=== PATIENT | female | born 1970 | race Caucasian/White ===

== ENCOUNTER 2024-11-16 10:54 | Outpatient (AMB) | payer OTHER, SELFPAY ==
--- NOTE | 2024-11-16 11:08 | A.OFFVIS_ITS ---
Intake Visit Reasons: CTS Allergies tranexamic acid (From LYSTEDA) Adverse Reaction (Intermediate, Unverified 11/16/24 11:20) severe n/v From ERYTHROCIN Allergy (Unknown, Uncoded 11/16/24 11:20) unknown Erythromycin Adverse Reaction (Unknown, Uncoded 11/16/24 11:20) stomache ache Medication List - Last Reconciled 11/16/24 by Freda Burrell CNP atorvastatin 10 mg PO DAILY cyclobenzaprine 5 mg PO BEDTIME PRN dextroamphetamine-amphetamine 20 mg 1 tab PO dextroamphetamine-amphetamine 30 mg ER 1 cap PO QAM diclofenac sodium 75 mg PO BID fezolinetant (Veozah) 45 mg PO DAILY lamotrigine 150 mg PO BID levothyroxine 25 mcg PO DAILY metformin ER 500 mg PO DAILY montelukast 10 mg PO DAILY quetiapine mg PO tirzepatide (Mounjaro) 7.5 mg subcut QWEEK topiramate 100 mg PO DAILY HPI Comments Details: She was doing okay. Some days better than others, occasionally getting pain in R hand, sometimes once a week or not at all, with certain activities like picking object up. Occasionally wakes with some numbness/tingling to R hand depending on how she slept. Sleep was generally okay. Ongoing neck pain and stiffness, unchanged. Some tightness in shoulders. Has some pain to left upper arm for about 2 weeks with certain activity, like lifting. No specific trigger identified. Pain and numbness to RUE was initially better with cyclobenzaprine at bedtime. Was getting pain from elbow down into fingers and numbness in fingers with certain activities, like when picking up coffee mug. Previously was?waking with numbness to RUE and gets some numbness throughout day, no specific trigger. No new or increased weakness. Works from home. She sits on a desk with a monitor all day. Ergonomically correct. Some work related stress. Some stiffness in neck daily. Numbness in all fingers at times. RUE is not as strong. Since 2018, she's been having a lot of neck pain for which she has been going to physical therapy. She had an MRI of the neck which showed degenerative disc disease with right HNP at C4-5 and C5-6 disc osteophyte complexes and was having pain radiating into the right upper extremity along with numbness and tingling. She had a cortisone injection in the neck which helped the right upper extremity pain. She has upper neck pain and occipital headache radiating into of the retroauricular areas of the scalp. Her funduscopic examination and visual bravo were fine. She had pseudotumor cerebri with multiple lumbar punctures about 15-20+ years ago (around [id number]) with her last lumbar puncture in 2003. [facility] Medical History (Updated 11/16/24 @ 11:17 by Freda uBrrell CNP) Carpal tunnel syndrome of right wrist Pseudotumor cerebri ADHD Diabetes mellitus Tension headache Cervical spondylosis Review of Systems Const Denies chills, Denies daytime sleepiness, Reports difficulty sleeping, Denies fatigue, Denies fever(s), Denies frequent falls, Denies headache(s), Denies increased appetite, Denies poor appetite, Denies snoring, Denies weakness, Denies weight gain and Denies weight loss Eyes Denies loss of vision ENT Denies vertigo, Denies dizziness, Denies headache(s) and Denies neck pain Card Denies chest pain at rest, Denies chest pain with activity, Denies syncope, Denies leg edema, Denies palpitations, Denies dyspnea and Denies dyspnea on exertion Resp Denies cough, Denies dyspnea, Denies dyspnea on exertion and Denies snoring GI Denies abdominal pain, Denies constipation, Denies heartburn, Denies diarrhea and Denies nausea Denies urinary frequency, Denies urinary incontinence and Denies urinary urgency Musc Denies abnormal gait, Denies back pain, Denies myalgias, Denies arthralgias, Denies neck pain, Reports numbness and Reports tingling Neuro Denies abnormal gait, Denies vertigo, Denies dizziness, Denies syncope, Denies frequent falls, Denies headache(s), Denies lack of coordination, Denies loss of vision, Denies memory loss, Reports numbness, Denies Other visual disturbances, Denies restless legs, Denies seizure-like activity, Reports tingling, Denies paresthesias, Denies tremor(s) and Denies weakness Psych Denies anxiety, Denies depression, Denies auditory hallucinations, Denies memory loss and Denies visual hallucinations Endo Denies fatigue and Denies palpitations Physical Exam Const Other: General Appearance:? normal, in no acute distress. Heart:? S1, S2 normal, no murmurs. Lungs:? clear anteriorly and posteriorly. Musculoskeletal:? normal. Extremities:? no edema. Psych:? alert, oriented, cognitive function intact, cooperative with exam. Neuro Other: Abnormal Neurological Findings:?Weakness in right biceps, deltoid and infraspinatus have resolved. Tense paracervical muscles. 5-/5 L deltoid. Mental Status: alert and oriented X 3. Normal attention, orientation, memory, and affect. Cranial Nerves: Pupils are equal, round, and reactive to light. External ocular muscles are intact. Visual bravo are full, no ptosis. Face is symmetrical, no facial weakness or droop. Facial sensations are normal. Tongue protrudes in midline. Palate elevates symmetrically. Shoulder shrugging is normal Motor Examination: As above, otherwise normal muscle tone, bulk and strength. No atrophy or fasciculations. No drift of the extended upper extremities. DTR 2+. Plantars are flexor. Sensory Exam: Normal light touch, temperature, pinprick, vibration, and joint- position sensations. Rhomberg sign is absent. Coordination: No ataxia. No titubation. Wtlaqq-ju-suec, gudc-hjox-bete test, and rapid alternating movements were normal. Gait Exam: Within normal limits. Cerebellar Signs: Mkoeph-oi-ihcq and qbcw-kf-lhhh is normal. No dysdiadochokinesia. Extrapyramidal System: No tremor, rigidity with normal facial expressions. No bradykinesia. No bradyphrenia. Normal arm swing and posture. No propulsion or retropulsion. Speech: Normal. No dysphasia or dysarthria. Results Reviewed Results Reviewed: NCV/EMG UE 03/11/20: Normal motor and sensory nerve conduction velocities in the upper extremities, except for an early Carpal tunnel syndrome on the right. Normal EMG in the right C5-T1 innervated muscles. MRI of the neck which showed degenerative disc disease with right HNP at C4-5 and C5-[address] brain and C spine 07/19/21: negative except C5-6 disc and osteophyte NCV/EMG UE 08/08/2024: Mild R CTS, slightly worse compared to study done in 2020. Normal EMG in the R C5-T1 innervated muscles. Labs 11/16/2024 at [place] (from PCP/endo): BUN: 21, Creat: 1.04, eGFR 64, LFTs ok, TSH ok, B12 ok, CBC - RBC 3.98, H+H 12.2/36.9 Assessment & Plan Assessment & Plan (1) Cervical radiculopathy at C5: Code(s): M54.12 - Radiculopathy, cervical region Category: Medical Plan: Continue diclofenac sodium 75mg 1 tablet as needed twice a day for pain. Continue cyclobenzaprine 5mg 1 tablet at bedtime as needed for muscle spasm. (2) Carpal tunnel syndrome of right wrist: Code(s): G56.01 - Carpal tunnel syndrome, right upper limb Category: Medical Plan: NCV/EMG results reviewed. May try wearing wrist splint at night. (3) Tension headache: Code(s): G44.209 - Tension-type headache, unspecified, not intractable Category: Medical Plan: . (4) Pseudotumor cerebri: Comment: hx of pseudotumor cerebri with multiple lumbar punctures about 15-20+ years ago (around [id number]) with her last lumbar puncture in 2003. Code(s): G93.2 - Benign intracranial hypertension Category: Medical Plan: Hx pseudotumor cerebri with multiple lumbar punctures about 15-20+ years ago (around [id number]) with her last lumbar puncture in 2003. (5) ADHD: Code(s): F90.9 - Attention-deficit hyperactivity disorder, unspecified type Category: Medical Qualifiers: Attention deficit-hyperactivity disorder type: unspecified Qualified Code(s): F90.9 - Attention-deficit hyperactivity disorder, unspecified type Plan: Treated with Adderall by psychiatry. Coding Level of Care Code Est Pt Level 4 (00359) Diagnoses Cervical radiculopathy at C5 M54.12 Carpal tunnel syndrome of right wrist G56.01 Tension headache G44.209 Pseudotumor cerebri G93.2 Attention deficit hyperactivity disorder (ADHD), unspecified ADHD type F90.9 Attention deficit-hyperactivity disorder type: unspecified
--- OUTSIDE RECORDS SUMMARY | 2024-11-16 11:34 | XMS_ITS | Clinical Summary ---
Author Organization [facility] Address [address] [place] [address] Care Team Providers Care Mechanical Lead Name Role Phone Bharati Fang PA-C Primary Care Provider [phone] Allergies No known active allergies Medications Adderall XR 20 MG 24 hr capsule 0 Active amphetamine-dextr oamphetamine (ADDERALL) 20 MG tablet TK 1 T PO QD IN THE AFTERNOON 0 Active atorvastatin (LIPITOR) 10 MG tablet 0 Active cyclobenzaprine (FLEXERIL) 10 MG tablet 0 Active BD Pen Needle Diane U/F 32G X 4 MM Misc USE DIRECTED BID 0 Active lamoTRIgine (LaMICtal) 150 MG tablet 0 Active Accu-Chek Softclix Lancets lancets Accu-Chek Softclix Lancets Active Victoza 18 MG/3ML subcutaneous injection ADM 1.8 MG SC D 0 Active metFORMIN (GLUCOPHAGE-XR) 500 MG 24 hr tablet TK 1 T PO QD WITH DINNER 0 Active topiramate (TOPAMAX) 25 MG tablet TK 2 TS PO QD 0 Active cetirizine (ZyrTEC) 10 MG tablet Take 10 mg by mouth daily. Active naproxen (NAPROSYN) 500 MG tabletIndications :Cervicalgia Take 1 tablet (500 mg total) by mouth 2 (two) times a day with meals. Take with meals or food to reduce stomach upset. 60 tablet 1 0 Active polyethylene glycol-electrolyt es (NuLYTELY, TRILYTE) 420 g solutionIndicatio ns:Chronic idiopathic constipation Take 4,000 mL by mouth once. 4000 mL 0 Active Active Problems Problem Noted Date Diagnosed Date Rectal bleeding 01/04/2020 Assessment & Plan (01/04/2020 2:03 PM EST): Blood mixed with mucus x 24 hours after large, constipated BM. Now resolved. Consider hemorrhoid, fissure, underlying bowel pathology such as polyp or malignancy. Colonoscopy A colonoscopy will be scheduled based on current indication. The indications, prep, alternatives and the procedure were thoroughly explained. There is no contraindication to colonoscopy. All questions were answered. The potential risks including but not limited to bleeding, infection, and perforation were also explained. Chronic idiopathic constipation 01/04/2020 Assessment & Plan (01/04/2020 2:04 PM EST): Lifelong. Not well managed despite fiber supplementation daily. Add Miralax 17 g daily. Colonoscopy to exclude underlying pathology. Heartburn 01/04/2020 Assessment & Plan (01/04/2020 2:05 PM EST): Well managed with famotidine 20 mg QHS Discussed EGD for further evaluation, currently no alarm symptoms Patient declines at this time GERD diet discussed Consider EGD if symptoms worsen or fail to improve Myofascial pain dysfunction syndrome 10/22/2019 Social History Tobacco Use Types Packs/Day Years Used Date Smoking Tobacco: Never Smokeless Tobacco: Never Comments No Sex and Gender Information Value Date Recorded Sex Assigned at Female 12/29/2023 10:50 PM EDT Legal Sex Female 1:57 PM EDT Gender Identity Female 12/29/2023 10:50 PM EDT Sexual Orientation Heterosexual (straight) 12/28 10:50 PM EDT Last Filed Vital Signs Vital Sign Reading Time Taken Comments Blood Pressure 130/74 01/04/2020 1:36 PM EST Pulse 71 10/02/2019 4:19 PM EDT Temperature 36.1 C (96.9 F) 01/04/2020 1:36 PM EST Respiratory Rate 18 10/02/2019 4:19 PM EDT Oxygen Saturation 98% 10/02/2019 4:19 PM EDT Inhaled Oxygen Concentration - - Weight 106 kg (233 lb) 01/04/2020 1:36 PM EST Height 161.3 cm (5' 3.5 ) 01/04/2020 1:36 PM EST Body Mass Index 40.63 01/04/2020 1:36 PM EST Plan of Treatment Health Maintenance Due Date Last Done Comments Hepatitis C Virus Screening 1971 HIV Screening 08/28/1984 DTaP/Tdap/Td Vaccines (1 - Tdap) 08/28/1990 Hepatitis B Vaccines (1 of 3 - 19+ 3-dose series) 08/28/1990 Pap Smear (Ages 21-65) 08/28/1992 Mammogram 2011 Pneumococcal Vaccines 50+ (1 of 1 - PCV) 08/28/2021 Zoster (Shingles) Vaccine (1 of 2) 08/28/2021 Influenza Vaccine 09/28/2024 12/09/2020, , 11/29/2019, Additional history exists COVID-19 Vaccine (3 - 2024-2 6 season) 2024 12/21/2020, 05/19/2020 Colonoscopy 02/04/2030 02/05/2020 Hemoglobin A1C Discontinued 06/03/2023, 12/25/2019 Procedures Procedure Name Priority Date/Time Associated Diagnosis Comments COLONOSCOPY (CC) Routine 02/05/2020 from Last 3 Months or Most Recently Relevant to Health Maintenance Results * COLONOSCOPY (CC) (02/05/2020) Mila Norton DO AMB ORDERABLE PERFORMABLE Fin al Result from Last 3 Months or Most Recently Relevant to Health Maintenance Insurance [facility] Care Teams Mechanical Lead Relationship Specialty Start Date End Date Bharati Fang PA-C [address] [place] [address] PCP - General Internal Medicine 10/02/19
--- OUTSIDE RECORDS SUMMARY | 2024-11-16 11:35 | XMS_ITS | Clinical Summary ---
Author Organization [facility] Address [address] [place] [address] Phone Care Team Providers Care Patient Care Nursing Assistant Name Role Phone Bharati Fang Primary Care Provider [phone] Allergies No known active allergies Medications atorvastatin (LIPITOR) 10 mg tablet Take 1 tablet (10 mg total) by mouth 1 (one) time each day. 08/30/2024 Active cetirizine (ZyrTEC) 10 mg tablet Take 1 tablet (10 mg total) by mouth 1 (one) time each day. Active cyclobenzaprine (FLEXERIL) 5 mg tablet Take 1 tablet (5 mg total) by mouth at bedtime as needed. Active amphetamine-dex troamphetamine XR (ADDERALL XR) 30 mg 24 hr capsule Take 1 capsule (30 mg total) by mouth 1 (one) time each day in the morning. Max Daily Amount: 30 mg Active amphetamine-dex troamphetamine (ADDERALL) 20 mg tablet Take 1 tablet (20 mg total) by mouth 1 (one) time each day if needed. Max Daily Amount: 20 mg 09/21/2019 Active famotidine (PEPCID) 20 mg tablet Take 1 tablet (20 mg total) by mouth 1 (one) time each day. 02/29/2020 Active Veozah 45 mg tablet Take 1 tablet by mouth 1 (one) time each day. 01/16/2024 Active lamoTRIgine (LaMICtal) 150 mg tablet Take 1 tablet (150 mg total) by mouth 2 (two) times a day. 01/23/2019 Active levothyroxine (SYNTHROID, LEVOTHROID) 25 mcg tablet Take 1 tablet (25 mcg total) by mouth 1 (one) time each day before breakfast. 03/16/2022 Active metFORMIN XR (GLUCOPHAGE-XR) 500 mg 24 hr tablet Take 1 tablet (500 mg total) by mouth 1 (one) time each day. 09/02/2019 Active montelukast (SINGULAIR) 10 mg tablet Take 1 tablet (10 mg total) by mouth at bedtime. 08/25/2024 Active QUEtiapine (SEROquel) 25 mg tablet Take 2 tablets (50 mg total) by mouth at bedtime. Active topiramate (TOPAMAX) 100 mg tablet Take 1 tablet (100 mg total) by mouth 1 (one) time each day. 03/13/2022 Active Mounjaro 7.5 mg/0.5 mL injection Inject 0.5 mL (7.5 mg total) under the skin every 7 (seven) days. Active diclofenac (VOLTAREN) 75 mg EC tablet Take 1 tablet (75 mg total) by mouth 2 (two) times a day. 02/18/2020 Active Active Problems No known active problems Encounters Date Type Department Care Team Description 09/24/2024 8:01 PM EDT - 09/24/2024 9:37 PM EDT Emergency [facility] Emergency [address] [place] [id number] Alcides Brar MD Acute cystitis with hematuria (Primary Dx); JAELYN (acute kidney injury) ([facility] V24) Discharge Disposition: Home or Self Care from Last 3 Months Immunizations Name Administration Dates Next Due [employer] SARS-CoV-2 COVID -19, vector-nr, [id number], preservative free 05/19/2020 Surgical History Surgery Date Site/Laterality Comments SECTION PROCEDURE: SECTION;COMMENT:x2 KNEE ARTHROSCOPY W/ MENISCAL REPAIR Left PROCEDURE:KNEE ARTHROSCOPY W/ MENISCAL REPAIR BREAST BIOPSY 09/21/2017 Left PROCEDURE:BREAST BIOPSY;COMMENT:BENIGN HYSTERECTOMY 2011 PROCEDURE:HYSTERECTOMY;COMME NT:due to excessive bleeding; benign and ovaries left ENDOMETRIAL ABLATION PROCEDURE:ENDOMETRIAL ABLATION COLONOSCOPY 02/05/2020 PROCEDURE:COLONOSCOPY;COMMEN T:benign polyp and int hemorrhoids; rec rpt in 5yrs with Dr. 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 Left breast mass 11/16/2017 DX:Left breast mass Bipolar 2 disorder ([facility] V24, [facility] V28) DX:Bipolar 2 disorder ([facility]) Family History Medical History Relation Name Comments Diabetes type II Father Diabetes Maternal Grandfather Heart disease Maternal Grandfather Prostate cancer Maternal Grandfather Brain cancer Maternal Grandmother at end of life Bipolar disorder Mother Rheum arthritis Mother Breast cancer Mother's Sister No Known Problems Paternal Grandfather No Known Problems Paternal Grandmother Bipolar disorder Sister ADD / ADHD Son 1 ADD / ADHD Son 2 Colon cancer Neg Hx Endometrial cancer Neg Hx Ovarian cancer Neg Hx Relation Name Status Comments Father Alive Maternal Grandfather Maternal Grandmother Mother Alive Mother's Sister Paternal Grandfather Paternal Grandmother Sister Alive Son 1 Alive Son 2 Alive Social History Tobacco Use Types Packs/Day Years Used Date Smoking Tobacco: Never Passive Smoke Exposure: Never Smokeless Tobacco: Never Tobacco Cessation:Counseling Given: Not Answered Alcohol Use Standard Drinks/Week Comments Yes 0 (1 standard drink = 0.6 oz pur e alcohol) social Comments Unknown Sex and Gender Information Value Date Recorded Sex Assigned at Female 01/18/2024 12:10 AM EST Legal Sex Female 4:08 PM EST Gender Identity Female 01/18/2024 12:10 AM EST Sexual Orientation Not on file Obstetrics History Last Filed Vital Signs Vital Sign Reading Time Taken Comments Blood Pressure 157/76 09/24/2024 9:29 PM EDT Pulse 63 09/24/2024 9:29 PM EDT Temperature 37 C (98.6 F) 09/24/2024 7:54 PM EDT Respiratory Rate 17 09/24/2024 9:29 PM EDT Oxygen Saturation 100% 09/24/2024 9:29 PM EDT Inhaled Oxygen Concentration - - Weight 76.2 kg (168 lb) 09/24/2024 7:54 PM EDT Height 160 cm (5' 3 ) 09/24/2024 7:54 PM EDT Body Mass Index 29.76 09/24/2024 7:54 PM EDT Plan of Treatment Health Maintenance Due Date Last Done Comments Diabetes: Annual Foot Exam 08/28/1981 Diabetes: Annual Retina Eye Exam 08/28/1981 Hepatitis B Vaccines (1 of 3 - 19+ 3-dose series) 08/28/1990 Cervical Cancer Screening: Pap Smear 08/28/1992 Pneumococcal Vaccine: 50+ Years (2 of 2 - PCV) 02/25/2021 02/26/2020 Colorectal Cancer Screening: Colonoscopy 02/04/2022 HIV Screening 02/04/2022 Hepatitis C Screening 02/04/2022 Social Influencers of Health Screening 02/04/2022 Depression Screening 02/29/2024 Diabetes: Blood Sugar Control Test (HGBA1C) 10/01/2024 04/03/2024, 06/03/2023, 12/25/2019 COVID-19 Vaccine ( - 2024- season) 2024 12/21/2020, 05/19/2020 Influenza Vaccine (#1) 2024 , 12/09/2020, 12/02/2019, Additional history exists Diabetes: Annual Urine Albumin-Creatinine Ratio (uACR) 04/03/2025 04/03/2024, 06/03/2023, 06/03/2023, Additional history exists Breast Cancer Screening 09/20/2025 09/21/19 24, 09/17/2022, 09/11/2021, Additional history exists Diabetes: Annual GFR (Glomerular Filtration Rate) 11/09/2025 11/09/2024, 09/24/2024, 04/17/2024, Additional history exists Cholesterol Screening (Lipid Panel) 11/09/2029 11/09/2024, 04/03/2024, 06/03/2023, Additional history exists DTaP,Tdap,and Td Vaccines (3 - Td or Tdap) 07/24/2031 07/23/2021, 02/01/2019 RSV Immunization Adult Patients (1 - 1-dose 75+ series) 08/28/2046 Zoster Vaccines Completed 05/08/2024, 02/18/2024 HIB Vaccines Aged Out No longer eligi ble based on patient's age to complete this topic HPV Vaccines Aged Out No longer eligi ble based on patient's age to complete this topic Hepatitis A Vaccines Aged Out No long er eligible based on patient's age to complete this topic IPV Vaccines Aged Out No longer eligi ble based on patient's age to complete this topic MMR Vaccines Aged Out No longer eligi ble based on patient's age to complete this topic Meningococcal ACWY Vaccine Aged Out N o longer eligible based on patient's age to complete this topic Meningococcal B Vaccine Aged Out No l onger eligible based on patient's age to complete this topic RSV Immunization Patients Under 20 months Aged Out No longer eligible based on patient's age to complete this topic Varicella Vaccines Aged Out No longer eligible based on patient's age to complete this topic Procedures Procedure Name Priority Date/Time Associated Diagnosis Comments ..URINALYSIS MICROSCOPIC REFLEX URINE CULTURE Routine 11/09/2024 9:43 AM EDT Gross hematuria CBC WITH AUTO DIFFERENTIAL Routine 11/09/2024 9:43 AM EDT Gross hematuria URINALYSIS WITH REFLEX MICROSCOPIC AND CULTURE Routine 11/09/2024 9:43 AM EDT Gross hematuria VITAMIN B12 Routine 11/09/2024 9:43 AM EDT Hyperlipemia Diabetes mellitus (CMS/HCC V24, CMS/HCC V28) Hypouricemia THYROID STIMULATING HORMONE WITH REFLEX FREE T4 Routine 11/09/2024 9:43 AM EDT Hyperlipemia Diabetes mellitus (CMS/HCC V24, CMS/HCC V28) Hypouricemia MICROALBUMIN CREATININE URINE RATIO Routine 11/09/2024 9:43 AM EDT Hyperlipemia Diabetes mellitus (CMS/HCC V24, CMS/HCC V28) Hypouricemia LIPID PANEL WITH REFLEX TO DIRECT LDL Routine 11/09/2024 9:43 AM EDT Hyperlipemia Diabetes mellitus (CMS/HCC V24, CMS/HCC V28) Hypouricemia COMPREHENSIVE METABOLIC PANEL Routine 11/09/2024 9:43 AM EDT Gross hematuria CBC AND DIFFERENTIAL Routine 11/09/2024 9:43 AM EDT Gross hematuria URINALYSIS WITH REFLEX MICROSCOPIC AND CULTURE Routine 11/09/2024 9:43 AM EDT Gross hematuria CULTURE URINE Routine 11/09/2024 9:43 AM EDT Gross hematuria CBC WITH AUTO DIFFERENTIAL STAT 09/24/2024 8:25 PM EDT COMPREHENSIVE METABOLIC PANEL STAT 09/24/2024 8:25 PM EDT CBC AND DIFFERENTIAL STAT 09/24/2024 8:25 PM EDT ..URINALYSIS MICROSCOPIC REFLEX URINE CULTURE STAT 09/24/2024 8:10 PM EDT URINALYSIS WITH REFLEX MICROSCOPIC AND CULTURE STAT 09/24/2024 8:10 PM EDT URINALYSIS WITH REFLEX MICROSCOPIC AND CULTURE STAT 09/24/2024 8:10 PM EDT CULTURE URINE STAT 09/24/2024 8:10 PM EDT MICROALBUMIN CREATININE URINE RATIO Routine 04/03/2024 9:19 AM EST Hyperlipemia Diabetes mellitus (CMS/HCC V24, CMS/[facility] V28) HEMOGLOBIN A1C Routine 04/03/2024 9:19 AM EST Hyperlipemia Diabetes mellitus (CMS/HCC V24, CMS/[facility] V28) MAMMOGRAM SCREENING BILATERAL 3D ARTEMIO WITH CAD Routine 09/21/2023 2:11 PM EDT Encounter for screening mammogram for malignant neoplasm of breast from Last 3 Months or Most Recently Relevant to Health Maintenance Results * (ABNORMAL) Urinalysis with reflex microscopic and culture (11/09/2024 9:43 AM EDT) Only the most recent of2 resultswithin the time period is included. Color, Urine Yellow Colorless, Yellow LAB URINALYSIS - AUTOMATED METHOD 11/09/2024 10:[address] [facility] Clarity, Urine Clear Clear LAB URINALYSIS - AUTOMATED METHOD 11/09/2024 10:[address] [facility] Specific [place] Urine 1.020 1.005 - 1.030 LAB URINALYSIS - AUTOMATED METHOD 11/09/2024 10:[address] [facility] pH, Urine 7.0 5.0 - 8.0 pH LAB URINALYSIS - AUTOMATED METHOD 11/09/2024 10:[address] [facility] Leukocytes, Urine Small(A) Negative WBCs/mcL LAB URINALYSIS - AUTOMATED METHOD 11/09/2024 10:[address] [facility] Nitrite, Urine Negative Negative LAB URINALYSIS - AUTOMATED METHOD 11/09/2024 10:[address] [facility] Protein, Urine Negative Negative mg/dL LAB URINALYSIS - AUTOMATED METHOD 11/09/2024 10:[address] [facility] Glucose, Urine Negative Negative mg/dL LAB URINALYSIS - AUTOMATED METHOD 11/09/2024 10:[address] [facility] Ketones, Urine Negative Negative mg/dL LAB URINALYSIS - AUTOMATED METHOD 11/09/2024 10:[address] [facility] Blood, Urine Negative Negative mg/dL LAB URINALYSIS - AUTOMATED METHOD 11/09/2024 10:[address] [facility] Urine Urine specimen obtained by clean catch procedure / Unknown Non-blood Collection / Unknown 11/09/2024 9:43 AM EDT 11/09/2024 9:53 AM EDT Fiona Freed GERIATRIC AIDE LAB URINE ORDERABLES Fin al Result Performing Organization Address [facility] Co de Phone Number [facility] [place] Reg. #:[id number] [place] [address], [place] [phone] * (ABNORMAL) Urinalysis microscopic reflex urine culture (11/09/2024 9:43 AM EDT) Only the most recent of2 resultswithin the time period is included. RBC, Urine 0 0 - 3 /HPF 11/09/2024 10:28 AM EDT [facility] WBC, Urine 1 0 - 5 /HPF 11/09/2024 10:28 AM EDT [facility] Bacteria, Urine Trace(A) None /HPF 11/09/2024 10:28 AM EDT [facility] Squamous Epithelial, Urine 1 0 - 5 /HPF 11/09/2024 10:28 AM EDT [facility] Urine Urine specimen obtained by clean catch procedure / Unknown Non-blood Collection / Unknown 11/09/2024 9:43 AM EDT 11/09/2024 9:53 AM EDT Fiona Freed GERIATRIC AIDE LAB URINE ORDERABLES Fin al Result Performing Organization Address City/[facility]/ZIP Co de Phone Number [facility] [place] Reg. #:[id number] [address] [place] [address], [place] [phone] * (ABNORMAL) Lipid panel with reflex to direct LDL (11/09/2024 9:43 AM EDT) Cholesterol 171 0 - 200 mg/dL LAB CHEMISTRY METHOD 11/09/2024 4:22 PM EDT [facility] Triglycerides 69 <150 mg/dL LAB CHEMISTRY METHOD 11/09/2024 4:22 PM EDT [facility] HDL 100(H) 37 - 92 mg/dL LAB CHEMISTRY METHOD 11/09/2024 4:22 PM EDT [facility] LDL Calculated 57 50 - 130 mg/dL LAB CHEMISTRY METHOD 11/09/2024 4:22 PM EDT [facility] VLDL Cholesterol [place] 13.8 mg/dL LAB CHEMISTRY METHOD 11/09/2024 4:22 PM EDT [facility] Comment:No established refer ence range. Blood Venous blood specimen / Unknown Venipuncture / Unknown 11/09/2024 9:43 AM EDT 11/09/2024 9:48 AM EDT Leslie Reed MD LAB BLOOD ORDERABLES Final Res ult [facility] [address] [place] [address], [place] [phone] * Thyroid stimulating hormone with reflex free T4 (11/09/2024 9:43 AM EDT) TSH 2.56 0.45 - 5.33 mcIU/mL LAB CHEMISTRY METHOD 11/09/2024 10:56 AM EDT [facility] Blood Venous blood specimen / Unknown Venipuncture / Unknown 11/09/2024 9:43 AM EDT 11/09/2024 9:48 AM EDT us Leslie Reed MD LAB BLOOD ORDERABLES Final Res ult [facility] [place] Reg. #:[id number] [address] [place] [address], [place] [phone] * (ABNORMAL) CBC auto differential (11/09/2024 9:43 AM EDT) Only the most recent of2 resultswithin the time period is included. [facility] Signature WBC 6.0 4.0 - 10.5 K/mcL LAB HEMETOLOGY METHOD 11/09/2024 [facility] RBC 3.98(L) 4.20 - 5.40 M/mcL LAB HEMETOLOGY METHOD 11/09/2024 9:50 [facility] Hemoglobin 12.2(L) 12.5 - 16.0 g/dL LAB HEMETOLOGY METHOD 11/09/2024 9:[address] [facility] Hematocrit 36.9(L) 37.0 - 47.0 % LAB HEMETOLOGY METHOD 11/09/2024 9:50 [facility] MCV 92.7 78.0 - 100.0 FL LAB HEMETOLOGY METHOD 11/09/2024 9:50 [facility] MCH 30.7 25.0 - 33.0 pcg LAB HEMETOLOGY METHOD 11/09/2024 9:50 [facility] MCHC 33.1 32.0 - 36.0 g/dL LAB HEMETOLOGY METHOD 11/09/2024 9:50 [facility] RDW 12.7 12.1 - 16.2 % LAB HEMETOLOGY METHOD 11/09/2024 9:50 [facility] Platelets 347 150 - 450 K/mcL LAB HEMETOLOGY METHOD 11/09/2024 9:50 [facility] MPV 8.9 7.4 - 11.4 FL LAB HEMETOLOGY METHOD 11/09/2024 9:50 [facility] Neutrophils Relative 61.1 44.0 - 74.0 % LAB HEMETOLOGY METHOD 11/09/2024 9:50 [facility] Lymphocytes Relative 28.0 20.0 - 48.0 % LAB HEMETOLOGY METHOD 11/09/2024 9:[address] [facility] Monocytes Relative 5.5 2.0 - 12.0 % LAB HEMETOLOGY METHOD 11/09/2024 9:50 AM [facility] Eosinophils Relative 4.7 0.0 - 6.0 % LAB HEMETOLOGY METHOD 11/09/2024 9:50 [facility] Basophils Relative 0.5 0.0 - 2.0 % LAB HEMETOLOGY METHOD 11/09/2024 9:[address] [facility] Neutrophils Absolute 3.67 1.80 - 7.80 K/mcL LAB HEMETOLOGY METHOD 11/09/2024 9:[address] [facility] Lymphocytes Absolute 1.68 1.00 - 3.20 K/mcL LAB HEMETOLOGY METHOD 11/09/2024 9:[address] [facility] Monocytes Absolute 0.33 0.00 - 0.80 K/mcL LAB HEMETOLOGY METHOD 11/09/2024 9:[address] [facility] Eosinophils Absolute 0.28 0.00 - 0.50 K/mcL LAB HEMETOLOGY METHOD 11/09/2024 9:[address] [facility] Basophils Absolute 0.03 0.00 - 0.20 K/mcL LAB HEMETOLOGY METHOD 11/09/2024 9:[address] [facility] Blood Venous blood specimen / Unknown Venipuncture / Unknown 11/09/2024 9:43 AM EDT 11/09/2024 9:48 AM EDT Fiona Freed NP LAB BLOOD ORDERABLES Fin al Result [facility] [place] Reg. #:[id number] [address] [place] [address], [place] [phone] * Microalbumin creatinine urine ratio (11/09/2024 9:43 AM EDT) Only the most recent of2 resultswithin the time period is included. Creatinine, Urine 78.4 mg/dL LAB CHEMISTRY METHOD 11/09/2024 10:04 PM EDT [facility] Microalb, Ur <3.0 Not established mg/L LAB CHEMISTRY METHOD 11/09/2024 10:04 PM EDT [facility] Microalb/Crea t Ratio LAB CHEMISTRY METHOD 11/09/2024 10:04 PM EDT [facility] Comment:Unable to calculate Urine Urine specimen obtained by clean catch procedure / Unknown Non-blood Collection / Unknown 11/09/2024 9:43 AM EDT 11/09/2024 9:54 AM EDT Leslie Reed MD LAB URINE ORDERABLES Final Res ult Performing Organization Address City/[facility]/ZIP Co de Phone Number [facility] [place] Reg. #: [id number] [address] [place] [address], [place] [phone] * Culture urine (11/09/2024 9:43 AM EDT) Only the most recent of2 resultswithin the time period is included. Culture, Urine Mixed urogenital brooke, no uropathogens present. Suggest repeat specimen, if clinically indicated. 11/11/2024 10:00 AM EDT [facility] Urine Urine specimen obtained by clean catch procedure / Unknown Non-blood Collection / Unknown 11/09/2024 9:43 AM EDT 11/09/2024 10:00 AM EDT Fiona Freed NP LAB MICROBIOLOGY - GENER AL ORDERABLES Final Result [facility] [address] [place] [address], [place] [phone] * Vitamin B12 (11/09/2024 9:43 AM EDT) [facility] Vitamin B-12 402 180 - 914 pcg/mL LAB CHEMISTRY METHOD 11/09/2024 4:43 PM EDT [facility] Blood Venous blood specimen / Unknown Venipuncture / Unknown 11/09/2024 9:43 AM EDT 11/09/2024 9:48 AM EDT Leslie Reed MD LAB BLOOD ORDERABLES Final Res ult [facility] [address] [place] [address], [place] [phone] * (ABNORMAL) Comprehensive metabolic panel (11/09/2024 9:43 AM EDT) Only the most recent of2 resultswithin the time period is included. [facility] Sodium 139 135 - 145 mmol/L LAB CHEMISTRY METHOD 11/09/2024 10:23 AM EDT [facility] Potassium 4.3 3.5 - 5.1 mmol/L LAB CHEMISTRY METHOD 11/09/2024 10:23 AM EDT [facility] Chloride 106 98 - 107 mmol/L LAB CHEMISTRY METHOD 11/09/2024 10:23 AM EDT [facility] CO2 28 24 - 32 mmol/L LAB CHEMISTRY METHOD 11/09/2024 10:23 AM EDT [facility] Anion Gap 5 5 - 14 LAB CHEMISTRY METHOD 11/09/2024 10:[facility] Glucose 86 70 - 99 mg/dL LAB CHEMISTRY METHOD 11/09/2024 10:[address] [facility] BUN 21(H) 7 - 17 mg/dL LAB CHEMISTRY METHOD 11/09/2024 10:[address] [facility] Creatinine 1.04(H) 0.50 - 1.00 mg/dL LAB CHEMISTRY METHOD 11/09/2024 10:[address] [facility] eGFR 64 >=60 mL/min/1. 73m2 LAB CHEMISTRY METHOD 11/09/2024 10:[address] [facility] Comment:Calculation based on the Chronic Kidney Disease Epidemiology Collaboration (CKD-EPI) equation refit without adjustment for race. BUN/Creatinine Ratio 20.2(H) 12.0 - 20.0 LAB CHEMISTRY METHOD 11/09/2024 10:[address] [facility] Calcium 10.1 8.4 - 10.2 mg/dL LAB CHEMISTRY METHOD 11/09/2024 10:[address] [facility] AST (SGOT) 16 5 - 40 unit/L LAB CHEMISTRY METHOD 11/09/2024 10:[address] [facility] ALT (SGPT) 17 7 - 52 unit/L LAB CHEMISTRY METHOD 11/09/2024 10:[address] [facility] Alkaline Phosphatase 55 34 - 104 unit/L LAB CHEMISTRY METHOD 11/09/2024 10:[address] [facility] Total Protein 6.4 6.4 - 8.5 g/dL LAB CHEMISTRY METHOD 11/09/2024 10:[address] [facility] Albumin 4.4 3.5 - 5.0 g/dL LAB CHEMISTRY METHOD 11/09/2024 10:[address] [facility] Total Bilirubin 0.4 0.3 - 1.0 mg/dL LAB CHEMISTRY METHOD 11/09/2024 10:23 AM EDT [facility] Blood Venous blood specimen / Unknown Venipuncture / Unknown 11/09/2024 9:43 AM EDT 11/09/2024 9:48 AM EDT Fiona Freed NP LAB BLOOD ORDERABLES Fin al Result [facility] [place] Reg. #:[id number] [address] [place] [address], [place] [phone] * Hemoglobin A1c (04/03/2024 9:19 AM EST) Hemoglobin A1C 5.1 <5.7 % LAB CHEMISTRY METHOD 04/03/2024 12:55 PM EST [facility] Mean Bld Glu Estim. 100 mg/dL LAB CHEMISTRY METHOD 04/03/2024 12:55 PM EST [facility] Blood Venous blood specimen / Unknown Venipuncture / Unknown 04/03/2024 9:19 AM EST 04/03/2024 9:53 AM EST Narrative [facility] - 04/03/2024 12:55 PM EST ADA Guidelines: Increased risk Diabetes Mellitus A1C 5.7 - 6.4% and Fasting Blood Glucose 100 - 125 mg/dl Diabetes Mellitus: A1C >6.5% and Fasting Blood Glucose >125 mg/dl Leslie Reed MD LAB BLOOD ORDERABLES Final Res ult [facility] [address] [place] [address], [place] [phone] * MAMMOGRAM SCREENING BILATERAL 3D ARTEMIO WITH CAD (09/21/2023 2:11 PM EDT) Anatomical Region Laterality Modality Mammography 09/06/2023 10:4 0 AM EDT Narrative 09/25/2023 2:37 PM EDT This is a summary report. The complete report is available in the patient's medical record. If you cannot access the medical record, please contact the sending organization for a detailed fax or copy. SESSION: Separate. EXAMINATION: Bilateral digital mammograms with CAD and Tomosynthesis. TECHNIQUE: Bilateral full field digital mammography with synthesized (2D) the and Tomosynthesis (3-D) was performed using standard cc and MLO projections. Mammogram was interpreted in correlation with CAD and Tomosynthesis. INDICATION: Yearly screening. FINDINGS: Compared to 09/17/2022, 09/11/2021 and 09/10/2020. There are scattered areas of fibroglandular density. (Density B, 25% to less than 50%). There is no significant change in the appearance and distribution of benign fibroglandular as well as fibronodular densities in the both breasts. As before, a microclip is seen in the left breast upper outer quadrant, related to prior benign biopsy. A few typically benign scattered calcifications as well as benign-appearing axillary lymph nodes are stable. No suspicious microcalcifications or masses are seen. CONCLUSION: Stable mammographic findings with no evidence of malignancy. RECOMMENDATION: Patient should continue with yearly screening mammography. NOTE: Patient has been informed about results of this screening mammogram, by a patient letter with 'plain language report'. BI-RADS Category 2: Benign findings. PQRI: [id number]. Report reviewed and signed by : Dr. Zander Reis MD on 09/25/2023 2:37 PM. Workstation Name - [id number] Procedure Note Zander Reis MD - 12/13/2023 This is a summary report. The complete report is available in thepatient's medical record. If you cannot access the medical record, pleasecontact the sending organization for a detailed fax or copy. SESSION: Separate. EXAMINATION: Bilateral digital mammograms with CAD and Tomosynthesis. TECHNIQUE: Bilateral full field digital mammography with synthesized (2D)the and Tomosynthesis (3-D) was performed using standard cc and MLOprojections. Mammogram was interpreted in correlation with CAD andTomosynthesis. INDICATION: Yearly screening. FINDINGS: Compared to 09/17/2022, 09/11/2021 and 09/10/2020. There are scattered areas of fibroglandular density. (Density B, 25% toless than 50%). There is no significant change in the appearance anddistribution of benign fibroglandular as well as fibronodular densities inthe both breasts. As before, a microclip is seen in the left breast upper outer quadrant,related to prior benign biopsy. A few typically benign scattered calcifications as well asbenign-appearing axillary lymph nodes are stable. No suspiciousmicrocalcifications or masses are seen. CONCLUSION: Stable mammographic findings with no evidence of malignancy. RECOMMENDATION: Patient should continue with yearly screening mammography. NOTE: Patient has been informed about results of this screening mammogram,by a patient letter with 'plain language report'. BI-RADS Category 2: Benign findings. PQRI: 3342F. Report reviewed and signed by : Dr. Zander Reis MD on 09/25/2023 2:37PM. Workstation Name - INDIO Rubi Martin DO IMG BI PROCEDURES Final Re sult from Last 3 Months or Most Recently Relevant to Health Maintenance Insurance [facility] Care Teams Patient Care Nursing Assistant Relationship Specialty Start Date End Date Bharati Fang PA PCP - General Internal Medicine 09/24/24
--- OUTSIDE RECORDS SUMMARY | 2024-11-16 11:35 | XMS_ITS ---
[facility] Name [facility] Organization Unknown Results Test Name/Text Value Interpretation Date Range Source Glucose SerPl-mCnc 90.0 mg/dL 09/25/2024 70 - 199 [facility] ALP SerPl-cCnc 63.0 unit/L 09/25/2024 34 - 104 [facility] Bilirub SerPl-mCnc 0.4 mg/dL 09/25/2024 0.3 - 1 [facility] Potassium SerPl-sCnc 4.0 mmol/L 09/25/2024 3.5 - 5.1 [facility] Prot SerPl-mCnc 6.7 g/dL 09/25/2024 6.4 - 8.5 [facility] eGFRcr SerPlBld CKD-EPI 2020 49.0 mL/min/1.73m2 Below low normal 09/25/2024 - [facility] Chloride SerPl-sCnc 106.0 mmol/L 09/25/2024 98 - 107 [facility] Calcium SerPl-mCnc 9.5 mg/dL 09/25/2024 8.4 - 10.2 [facility] Albumin SerPl-mCnc 4.6 g/dL 09/25/2024 3.5 - 5 [facility] Creat SerPl-mCnc 1.3 mg/dL Above high normal 09/25/2024 0.5 - 1 [facility] BUN SerPl-mCnc 20.0 mg/dL Above high normal 09/25/2024 7 - 1 7 [facility] CO2 SerPl-sCnc 26.0 mmol/L 09/25/2024 24 - 32 [facility] ALT SerPl-cCnc 15.0 unit/L 09/25/2024 7 - 52 [facility] Sodium SerPl-sCnc 139.0 mmol/L 09/25/2024 135 - 14 5 [facility] BUN/Creat SerPl 15.4 09/25/2024 12 - 20 [facility] Anion Gap SerPl Calc-sCnc 7.0 09/25/2024 5 - 14 [facility] AST SerPl-cCnc 16.0 unit/L 09/25/2024 5 - 40 CT [facility] MCHC RBC Auto-EntMCnc 33.0 g/dL 09/25/2024 32 - 36 [facility] PMV Bld Auto 9.1 FL 09/25/2024 7.4 - 11.4 [facility] Lymphocytes # Bld Auto 1.38 K/mcL 09/25/2024 1 - 3.2 [facility] WBC # Bld Auto 7.1 K/mcL 09/25/2024 4 - 10.5 [facility] Hgb Bld-mCnc 11.5 g/dL Below low normal 09/25/2024 12.5 - 16 [facility] Eosinophil # Bld Auto 0.2 K/mcL 09/25/2024 0 - 0.5 [facility] Basophils NFr Bld Auto 0.3 % 09/25/2024 0 - 2 [facility] Eosinophil NFr Bld Auto 2.8 % 09/25/2024 0 - 6 [facility] RDW RBC Auto 13.0 % 09/25/2024 12.1 - 16.2 [facility] Monocytes NFr Bld Auto 6.6 % 09/25/2024 2 - 12 [facility] Platelet # Bld Auto 357.0 K/mcL 09/25/2024 150 - 450 [facility] Basophils # Bld Auto <0.03 K/mcL 09/25/2024 0 - 0.2 [facility] Monocytes # Bld Auto 0.47 K/mcL 09/25/2024 0 - 0.8 [facility] RBC # Bld Auto 3.75 M/mcL Below low normal 09/25/2024 4.2 - 5.4 [facility] Lymphocytes NFr Bld Auto 19.4 % Below low normal 09/25/2024 20 - 48 [facility] MCH RBC Qn Auto 30.7 pcg 09/25/2024 25 - 33 [facility] RBC Auto 93.1 FL 09/25/2024 78 - 100 [facility] Hct VFr Bld Auto 34.9 % Below low normal 09/25/2024 37 - 47 [facility] Neutrophils NFr Bld Auto 70.6 % 09/25/2024 44 - 74 [facility] Neutrophils # Bld Auto 5.01 K/mcL 09/25/2024 1.8 - 7.8 [facility] Mucous Threads UrnS Ql Micro 1+ 09/25/2024 - [facility] WBC #/area UrnS HPF >20.0 /HPF Above high normal 09/25/2024 0 - 5 [facility] RBC #/area UrnS HPF >20.0 /HPF Above high normal 09/25/2024 0 - 3 [facility] Bacteria #/area UrnS HPF 3+ Abnormal 09/25/2024 - [facility] Squamous #/area UrnS HPF 5.0 /HPF 09/25/2024 0 - 5 [facility] Nitrite Ur Ql Negative 09/25/2024 - [facility] Glucose Ur Ql Negative 09/25/2024 - [facility] Hgb Ur Ql Large Abnormal 09/25/2024 - [facility] Clarity Ur Cloudy Abnormal 09/25/2024 - [facility] Sp Gr Ur 1.015 09/25/2024 1.005 - 1.03 [facility] Ketones Ur-mCnc Negative 09/25/2024 - [facility] Prot Ur Strip-mCnc 30.0 mg/dL Abnormal 09/25/2024 - [facility] pH Ur 6.5 pH 09/25/2024 5 - 8 [facility] Leukocyte esterase Ur Ql Strip Large Abnormal 09/25/2024 - [facility] Color Ur Yellow 09/25/2024 - [facility] AST SERPL CCNC 15.0 U/L Normal 09/22/2023 5 - 40 [facility] ALT SERPL CCNC 16.0 U/L Normal 09/22/2023 7 - 52 [facility] BILIRUB DIRECT SERPL MCNC 0.1 mg/dL Normal 09/22/2023 0 - 0.2 [facility] ALBUMIN SERPL BCG MCNC 4.5 g/dL Normal 09/22/2023 3.5 - 5 [facility] BILIRUB SERPL MCNC 0.4 mg/dL Normal 09/22/2023 0.3 - 1 [facility] ALBUMIN/GLOB SERPL MRTO 2.0 Normal 09/22/2023 [facility] ALP SERPL-CCNC 68.0 U/L Normal 09/22/2023 34 - 104 [facility] PROT SERPL MCNC 6.8 g/dL Normal 09/22/2023 6.4 - 8.5 [facility] Glomerular filtration rate/1.73 sq M. predicted 68.0 Normal 06/03/2023 60 - [facility] ANION GAP SERPL SCNC 5.0 mmol/L Normal 06/03/2023 5 - 14 [facility] ALBUMIN SERPL BCG MCNC 4.2 g/dL Normal 06/03/2023 3.5 - 5 [facility] CREAT SERPL MCNC 1.0 mg/dL Normal 06/03/2023 0.5 - 1 [facility] CALCIUM SERPL MCNC 9.6 mg/dL Normal 06/03/2023 8.4 - 10.2 [facility] AST SERPL CCNC 15.0 U/L Normal 06/03/2023 5 - 40 [facility] SODIUM SERPL SCNC 137.0 mmol/L Normal 06/03/2023 135 - 14 5 [facility] ALT SERPL CCNC 17.0 U/L Normal 06/03/2023 7 - 52 [facility] CHLORIDE SERPL SCNC 104.0 mmol/L Normal 06/03/2023 98 - 107 [facility] POTASSIUM SERPL SCNC 4.3 mmol/L Normal 06/03/2023 3.5 - 5.1 [facility] PROT SERPL MCNC 6.6 g/dL Normal 06/03/2023 6.4 - 8.5 [facility] HCO3 SER SCNC 28.0 mmol/L Normal 06/03/2023 24 - 32 [facility] ALP SERPL-CCNC 70.0 U/L Normal 06/03/2023 34 - 104 [facility] BILIRUB SERPL MCNC 0.4 mg/dL Normal 06/03/2023 0.3 - 1 [facility] BUN SERPL MCNC 20.0 mg/dL Above high normal 06/03/2023 7 - 1 7 [facility] GLUCOSE P FAST SERPL MCNC 75.0 mg/dL Normal 06/03/2023 70 - 99 [facility] MICROALBUMIN/CREAT UR Microalbumin too low to calculate ratio Normal 06/03/2023 - 30 [facility] CREAT UR MCNC 90.5 mg/dL Normal 06/03/2023 [facility] TRIGL SERPL-MCNC 111.0 mg/dL Normal 06/03/2023 - 150 [facility] HDLC SERPL-MCNC 87.0 mg/dL Normal 06/03/2023 37 - 92 [facility] LDLc SerPl Calc-mCnc 72.0 mg/dL Normal 06/03/2023 50 - [facility] CHOLEST SERPL-MCNC 181.0 mg/dL Normal 06/03/2023 0 - 200 [facility] TSH SerPl DL<=0.005 mIU/L-aCnc 3.32 uIU/mL Normal 06/03/2023 0.45 - 5.33 [facility] MCHC RBC AUTO MCNC 33.5 g/dL Normal 06/03/2023 32 - 36 [facility] LYMPHOCYTES NFR BLD AUTO 29.7 % Normal 06/03/2023 20 - 48 [facility] HCT VFR BLD AUTO 39.7 % Normal 06/03/2023 37 - 47 [facility] HGB BLD MCNC 13.3 g/dL Normal 06/03/2023 12.5 - [facility] BASOPHILS IN BLOOD BY AUTOMATED COUNT 0.0 K/uL Normal 06/03/2023 0 - 0.2 [facility] PMV BLD AUTO 9.0 fL Normal 06/03/2023 7.4 - 11.4 [facility] BASOPHIL[facility] NFR BLD AUTO 0.3 % Normal 06/03/2023 0 - 2 [facility] PLATELET NO. BLD AUTO 317.0 K/uL Normal 06/03/2023 150 - 450 [facility] RBC NO. BLD AUTO 4.36 M/uL Normal 06/03/2023 4.2 - 5.4 [facility] NEUTROPHILS NFR BLD AUTO 60.0 % Normal 06/03/2023 44 - 74 [facility] MONOCYTES NO. BLD AUTO 0.3 K/uL Normal 06/03/2023 0 - 0.8 [facility] LYMPHOCYTES NO. BLD AUTO 1.7 K/uL Normal 06/03/2023 1 - 3.2 [facility] IMMATURE GRANULOCYTE, PERCENT 0.2 % Normal 06/03/2023 0 - 1 [facility] WBC NO. BLD AUTO 5.9 K/uL Normal 06/03/2023 4 - 10.5 CT [facility] MCH RBC QN AUTO 30.5 pg Normal 06/03/2023 25 - 33 [facility] EOSINOPHIL NO. BLD AUTO 0.3 K/uL Normal 06/03/2023 0 - 0.5 [facility] NEUTROPHILS NO. BLD AUTO 3.5 K/uL Normal 06/03/2023 1.8 - 7.8 [facility] MCV RBC AUTO 91.1 fL Normal 06/03/2023 78 - 100 [facility] H EOSINOPHIL NFR BLD AUTO 4.3 % Normal 06/03/2023 0 - 6 [facility] RDW RBC AUTO RTO 12.5 % Normal 06/03/2023 12.1 - 16.2 [facility] IMMATURE GRANULOCYTE, ABSOLUTE 0.01 k/uL Normal 06/03/2023 - 0.1 [facility] MONOCYTES NFR BLD AUTO 5.5 % Normal 06/03/2023 2 - 12 [facility] NUCLEATED RBC 0.0 % Normal 06/03/2023 0 - 1 [facility] 25(OH)D3+25(OH)D2 SerPl IA-mCnc 42.0 ng/mL Normal 06/03/2023 30 - 100 [facility] T4 FREE SERPL MCNC 0.9 ng/dL Normal 06/03/2023 0.5 - 1.3 [facility] Prot Ur Ql Strip.auto NEGATIVE Normal 06/03/2023 - [facility] Ketones Ur Ql Strip.auto NEGATIVE Normal 06/03/2023 - [facility] Sp Gr Ur Strip.auto 1.015 Normal 06/03/2023 1.005 - 1.03 [facility] Hgb Ur Ql Strip.auto NEGATIVE Normal 06/03/2023 - [facility] Glucose Ur Ql Strip.auto NEGATIVE Normal 06/03/2023 - [facility] Clarity Ur Refract.auto CLEAR Normal 06/03/2023 [facility] Nitrite Ur Ql Strip.auto NEGATIVE Normal 06/03/2023 - [facility] pH Ur Strip.auto 6.0 Normal 06/03/2023 4.5 - 8 [facility] Leukocyte esterase Ur Ql Strip.auto NEGATIVE Normal 06/03/2023 - [facility] SPECIMEN SOURCE XXX URINE CLEAN CATCH Normal 06/03/2023 [facility] CREAT UR MCNC 90.5 mg/dL Normal 06/04/2023 [facility] Hgb A1c MFr Bld HPLC 5.1 % Normal 06/03/2023 - 5.7 [facility] CREAT SERPL MCNC 1.0 mg/dL Normal 06/03/2023 0.5 - 1 [facility] PROT SERPL MCNC 6.6 g/dL Normal 06/03/2023 6.4 - 8.5 [facility] ALBUMIN SERPL BCG MCNC 4.2 g/dL Normal 06/03/2023 3.5 - 5 [facility] ALP SERPL-CCNC 70.0 U/L Normal 06/03/2023 34 - 104 [facility] CALCIUM SERPL MCNC 9.6 mg/dL Normal 06/03/2023 8.4 - 10.2 [facility] POTASSIUM SERPL SCNC 4.3 mmol/L Normal 06/03/2023 3.5 - 5.1 [facility] BILIRUB SERPL MCNC 0.4 mg/dL Normal 06/03/2023 0.3 - 1 [facility] Glomerular filtration rate/1.73 sq M. predicted 68.0 Normal 06/03/2023 60 - [facility] ALT SERPL CCNC 17.0 U/L Normal 06/03/2023 7 - 52 [facility] ANION GAP SERPL SCNC 5.0 mmol/L Normal 06/03/2023 5 - 14 [facility] GLUCOSE P FAST SERPL MCNC 75.0 mg/dL Normal 06/03/2023 70 - 99 [facility] CHLORIDE SERPL SCNC 104.0 mmol/L Normal 06/03/2023 98 - 107 [facility] AST SERPL CCNC 15.0 U/L Normal 06/03/2023 5 - 40 [facility] HCO3 SER SCNC 28.0 mmol/L Normal 06/03/2023 24 - 32 CTT HS BUN SERPL MCNC 20.0 mg/dL Above high normal 06/03/2023 7 - 1 7 [facility] SODIUM SERPL SCNC 137.0 mmol/L Normal 06/03/2023 135 - 14 5 [facility] CHOLEST SERPL-MCNC 177.0 mg/dL Normal 06/03/2023 0 - 200 [facility] HDLC SERPL-MCNC 84.0 mg/dL Normal 06/03/2023 37 - 92 [facility] LDLc SerPl Calc-mCnc 71.0 mg/dL Normal 06/03/2023 50 - 130 [facility] TRIGL SERPL-MCNC 110.0 mg/dL Normal 06/03/2023 - 150 [facility] MONOCYTES NO. BLD AUTO 0.3 K/uL Normal 06/03/2023 0 - 0.8 [facility] BASOPHILS NFR BLD AUTO 0.3 % Normal 06/03/2023 0 - 2 [facility] EOSINOPHIL NO. BLD AUTO 0.3 K/uL Normal 06/03/2023 0 - 0.5 [facility] NEUTROPHILS NFR BLD AUTO 60.0 % Normal 06/03/2023 44 - 74 [facility] EOSINOPHIL NFR BLD AUTO 4.3 % Normal 06/03/2023 0 - 6 [facility] NEUTROPHILS NO. BLD AUTO 3.5 K/uL Normal 06/03/2023 1.8 - 7.8 [facility] LYMPHOCYTES NFR BLD AUTO 29.7 % Normal 06/03/2023 20 - 48 [facility] BASOPHILS IN BLOOD BY AUTOMATED COUNT 0.0 K/uL Normal 06/03/2023 0 - 0.2 [facility] MONOCYTES NFR BLD AUTO 5.5 % Normal 06/03/2023 2 - 12 [facility] LYMPHOCYTES NO. BLD AUTO 1.7 K/uL Normal 06/03/2023 1 - 3.2 [facility] IMMATURE GRANULOCYTE, PERCENT 0.2 % Normal 06/03/2023 0 - 1 [facility] NUCLEATED RBC 0.0 % Normal 06/03/2023 0 - 1 [facility] IMMATURE GRANULOCYTE, ABSOLUTE 0.01 k/uL Normal 06/03/2023 - 0.1 [facility] MCV RBC AUTO 91.1 fL Normal 06/03/2023 78 - 100 [facility] PMV BLD AUTO 9.0 fL Normal 06/03/2023 7.4 - 11.4 [facility] MH MCHC RBC AUTO MCNC 33.5 g/dL Normal 06/03/2023 32 - 36 [facility] RDW RBC AUTO RTO 12.5 % Normal 06/03/2023 12.1 - 16.2 [facility] RBC NO. BLD AUTO 4.36 M/uL Normal 06/03/2023 4.2 - 5.4 CT [facility] HGB BLD MCNC 13.3 g/dL Normal 06/03/2023 12.5 - 16 [facility] MCH RBC QN AUTO 30.5 pg Normal 06/03/2023 25 - 33 CTT HS WBC NO. BLD AUTO 5.9 K/uL Normal 06/03/2023 4 - 10.5 CT [facility] PLATELET NO. BLD AUTO 317.0 K/uL Normal 06/03/2023 150 - 450 [facility] HCT VFR BLD AUTO 39.7 % Normal 06/03/2023 37 - 47 [facility] TSH SerPl DL<=0.005 mIU/L-aCnc 3.32 uIU/mL Normal 06/03/2023 0.45 - 5.33 [facility] History of Medication Use Medication Directions Dispensed Refills Start Date End Date Status cephalexin (KEFLEX) capsule 500 mg 500 mg, oral, Once, On Tue09/24/24 at 2101, For 1 dose, Indication: Urinary Tract/Genitourinary 09/26/19 25 025 completed sodium chloride 0.9 % bolus 500 mL 500 mL, intravenous, at 1,000 mL/hr, Administer over 30 Minutes, Once, On Tue09/24/24 at 2101, For 1 dose 09/26/19 25 025 completed atorvastatin (LIPITOR) 10 mg tablet Take 1 tablet (10 mg total) by mouth 1 (one) time each day. 08/31/19 25 active montelukast (SINGULAIR) 10 mg tablet Take 1 tablet (10 mg total) by mouth at bedtime. 08/26/19 25 active Veozah 45 mg tablet Take 1 tablet by mouth 1 (one) time each day. 01/16/20 24 active benzonatateTake 1 capsule (Oral) 3 times per day PRN - Cough for 5 [id number] times per [id number] 0mg 06/28/19 24 active amphetamine-dextroamph etamine (ADDERALL) 20 MG tablet 04/08/19 24 active methocarbamol 500 mg tablet TAKE 1 TABLET BY MOUTH THREE TIMES DAILY FOR 5 DAYS 07/25/19 023 completed minoxidil 2.5 mg tablet Take 0.5 tablets (1.25 mg total) by mouth daily. 07/10/19 023 completed dexamethasone 4 mg tablet Take 1 tab BID x 7 days and then daily for 7 days 06/10/19 023 completed hydrocodone-homatropin e 5 mg-1.5 mg/5 mL oral syrup Take 5 mL by mouth 4 (four) times a day as needed. 04/11/19 023 completed doxycycline hyclate 100 mg tablet Take 1 tablet (100 mg total) by mouth 2 (two) times a day for 7 days. 04/01/19 023 completed prednisone 20 mg tablet Take 1 tablet (20 mg total) by mouth 2 (two) times a day for 5 days. 03/24/19 023 completed albuterol sulfate HFA 90 mcg/actuation aerosol inhaler TAKE 2PUFFS BY MOUTH EVERY 4 HOURS 03/16/19 023 completed promethazine-DM 6.25 mg-15 mg/5 mL oral syrup TAKE 5ML BY MOUTH EVERY4-6 HOURS NEEDED FOR COUGH 03/16/19 023 completed azithromycin 250 mg tablet TAKE 2 TABLETS BY MOUTH TODAY, THEN TAKE 1 TABLET DAILY FOR 4 DAYS 03/16/19 023 completed levothyroxine (SYNTHROID, LEVOTHROID) 25 mcg tablet Take 1 tablet (25 mcg total) by mouth 1 (one) time each day before breakfast. 03/16/19 23 active duloxetine 30 mg capsule,delayed release Take 1 capsule (30 mg total) by mouth daily. Every other day 03/13/19 023 completed topiramate (TOPAMAX) 100 mg tablet Take 1 tablet (100 mg total) by mouth 1 (one) time each day. 03/13/19 active Mounjaro 5 mg/0.5 mL subcutaneous pen injector INJECT 5 MG UNDER THE SKIN WEEKLY 03/12/19 23 024 completed lidocaine 5 % topical patch Place 1 patch onto the skin every 12 (twelve) hours. Remove & Discard patch within 12 hours or as directed by 09/18/19 22 023 completed methylprednisolone 4 mg tablet follow package directions 09/18/19 22 023 completed famotidine 20 mg tablet 02/28/19 active famotidine (PEPCID) 20 mg tablet Take 1 tablet (20 mg total) by mouth 1 (one) time each day. 02/28/19 active diclofenac (VOLTAREN) 75 mg EC tablet Take 1 tablet (75 mg total) by mouth 2 (two) times a day. 02/18/20 active diclofenac (VOLTAREN) 75 MG EC tablet Take 1 tablet (75 mg total) by mouth 2 (two) times a day after meals. 02/18/20 active amphetamine-dextroamph etamine (ADDERALL) 20 mg tablet Take 1 tablet (20 mg total) by mouth 1 (one) time each day if needed. Max Daily Amount: 20 mg 09/21/19 active metFORMIN XR (GLUCOPHAGE-XR) 500 mg 24 hr tablet Take 1 tablet (500 mg total) by mouth 1 (one) time each day. 09/02/19 20 active topiramate 25 mg tablet TK 2 TS PO ONCE D 04/20/19 20 023 completed lamoTRIgine (LaMICtal) 150 mg tablet Take 1 tablet (150 mg total) by mouth 2 (two) times a day. 01/24/20 active lamoTRIgine (LaMICtal) 150 MG tablet Take 1 tablet (150 mg total) by mouth daily. 01/24/20 19 active Victoza 2-Alok 0.6 mg/0.1 mL (18 mg/3 mL) subcutaneous pen injector 09/06/19 16 023 completed BD PEN NEEDLE DAYAN U/F 32G X 4 MM MISC 07/23/19 16 active benzonatate 200 mg capsule TAKE 1 CAPSULE BY MOUTH THREE TIMES DAILY FOR 5 DAYS NEEDED FOR COUGH 025 completed dextroamphetamine-amph etamine ER 25 mg 24hr capsule,extend release Adderall XR 25 mg capsule,extended releaseTAKE 1 CAPSULE BY MOUTH EVERY DAY 025 completed levothyroxine 25 mcg tablet TAKE 1 TABLET BY MOUTH 30 MINUTES BEFORE BREAKFAST 025 completed Miralax 025 active benzonatate 200 mg capsule TAKE 1 CAPSULE BY MOUTH THREE TIMES DAILY FOR 5 DAYS NEEDED FOR COUGH 024 completed minoxidil 2.5 mg tablet TAKE 1/2 TABLET BY MOUTH EVERY DAY 024 completed acetaminophen 325 mg tablet Take 2 tablets (650 mg total) by mouth every 6 (six) hours as needed for pain. 024 completed ibuprofen 200 mg tablet Take 1 tablet (200 mg total) by mouth every 6 (six) hours as needed for pain. 024 completed albuterol sulfate HFA 90 mcg/actuation aerosol inhaler TAKE 2PUFFS BY MOUTH EVERY 4 HOURS 023 completed azithromycin 250 mg tablet TAKE 2 TABLETS BY MOUTH TODAY, THEN TAKE 1 TABLET DAILY FOR 4 DAYS 023 completed doxycycline hyclate 100 mg tablet TAKE 1 TABLET BY MOUTH TWICE DAILY 023 completed Hydromet 5 mg-1.5 mg/5 mL oral syrup TAKE 5 ML BY MOUTH FOUR TIMES DAILY NEEDED 023 completed ketoconazole 2 % shampoo USE 3 TO 5 TIMES A WEEK DIRECTED 023 completed lidocaine 5 % topical patch PLACE 1 PATCH ONTO THE SKIN EVERY 12 HOURS. REMOVE AND DISPATCH WITHIN 12 HOURS OR DIRECTED 023 completed methocarbamol 500 mg tablet TAKE 1 TABLET BY MOUTH THREE TIMES DAILY FOR 5 DAYS 023 completed Mounjaro 5 mg/0.5 mL subcutaneous pen injector INJECT 5 MG UNDER THE SKIN WEEKLY 023 completed prednisone 20 mg tablet TAKE 3 TABLETS BY MOUTH DAILY 023 completed topiramate 25 mg tablet TAKE 2 TABLETS BY MOUTH EVERY DAY 022 completed triamcinolone acetonide 0.1 % topical cream 022 completed dextroamphetamine-amph etamine 10 mg tablet 020 completed fluticasone propionate 50 mcg/actuation nasal spray,suspension 09/24/2 020 completed Victoza 2-Alok 020 completed amoxicillin 875 mg-potassium clavulanate 125 mg tablet 019 completed Latuda 60 mg tablet 019 completed neomycin 3.5 mg/g-polymyxin B 10,000 unit/g-dexameth 0.1 % eye oint 019 completed nitrofurantoin monohydrate/macrocryst als 100 mg capsule 019 completed oseltamivir 75 mg capsule 019 completed phenazopyridine 200 mg tablet 019 completed AdderalLTakeNo date recordedNo form recordedNo frequency recordedNo route recordedNo set duration recordedNo set duration amount recordedactiveNo dosage strength recordedNo dosage strength units of measure recorded active Calcium 500TakeNo date recordedNo form recordedNo frequency recordedNo route recordedNo set duration recordedNo set duration amount recordedactiveNo dosage strength recordedNo dosage strength units of measure recorded active montelukastTakeNo date recordedNo form recordedNo frequency recordedNo route recordedNo set duration recordedNo set duration amount recordedactiveNo dosage strength recordedNo dosage strength units of measure recorded active PepcidTakeNo date recordedNo form recordedNo frequency recordedNo route recordedNo set duration recordedNo set duration amount recordedactiveNo dosage strength recordedNo dosage strength units of measure recorded active MounjaroTakeNo date recordedNo form recordedNo frequency recordedNo route recordedNo set duration recordedNo set duration amount recordedactiveNo dosage strength recordedNo dosage strength units of measure recorded active Adderall 20 mg tablet Take 1 tablet ever y day by oral route as needed. active atorvastatin 10 mg tablet TAKE 1 TABLET BY MOUTH DAILY active cetirizine 10 mg tablet Take 1 tablet (10 mg total) by mouth. active cyclobenzaprine 5 mg tablet TAKE 1 TABLET BY MOUTH DAILY AT BEDTIME NEEDED active dextroamphetamine-amph etamine 20 mg tablet TAKE 1 TABLET BY MOUTH DAILY IN THE EVENING NEEDED active dextroamphetamine-amph etamine ER 30 mg 24hr capsule,extend release TAKE 1 CAPSULE BY MOUTH DAILY active diclofenac sodium 75 mg tablet,delayed release Take 1 tablet (75 mg total) by mouth 2 (two) times a day after meals. active lamotrigine 150 mg tablet TAKE 1 TABLET BY MOUTH TWICE DAILY EVERY DAY active lamotrigine 150 mg tablet Take 1 tablet (150 mg total) by mouth daily. active metformin ER 500 mg tablet,extended release 24 hr Take 1 tablet (500 mg total) by mouth every morning with breakfast. active montelukast 10 mg tablet TAKE 1 TABLET BY MOUTH EVERY NIGHT AT BEDTIME active montelukast 10 mg tablet Take 1 tablet (10 mg total) by mouth every night at bedtime. active Mounjaro 7.5 mg/0.5 mL subcutaneous pen injector ADMINISTER 7.5 MG UNDER THE SKIN WEEKLY active quetiapine 25 mg tablet TAKE 1 TO 2 TABLETS BY MOUTH EVERY NIGHT AT BEDTIME TOLERATED active topiramate 100 mg tablet Take 1 tablet (100 mg total) by mouth daily. active triamcinolone acetonide 0.1 % topical cream APPLY TO EXTREMITIES TWICE DAILY FOR 2 WEEKS OR LESS active Veozah 45 mg tablet TAKE 1 TABLET BY MOUTH EVERY DAY active amphetamine-dextroamph etamine XR (ADDERALL XR) 30 mg 24 hr capsule Take 1 capsule (30 mg total) by mouth 1 (one) time each day in the morning. Max Daily Amount: 30 mg active cetirizine (ZyrTEC) 10 mg tablet Take 1 tablet (10 mg total) by mouth 1 (one) time each day. active cetirizine (ZyrTEC) 10 MG tablet Take 1 tablet (10 mg total) by mouth. active cyclobenzaprine (FLEXERIL) 5 mg tablet Take 1 tablet (5 mg total) by mouth at bedtime as needed. active diclofenac sodium 75 mg tablet,delayed release TAKE 1 TABLET BY MOUTH TWICE DAILY AFTER A MEAL TAKE 1 TABLET BY MOUTH TWICE DAILY AFTER A MEAL completed ketoconazole 2 % shampoo USE 3 TO 5 TIMES A WEEK DIRECTED USE 3 TO 5 TIMES A WEEK DIRECTED completed lamotrigine 150 mg tablet TAKE 1 TABLET BY MOUTH EVERY DAY TAKE 1 TABLET BY MOUTH EVERY DAY completed Mounjaro 7.5 mg/0.5 mL injection Inject 0.5 mL (7.5 mg total) under the skin every 7 (seven) days. active multivitamin multivitamin comple oswald Pepcid Pepcid completed QUEtiapine (SEROquel) 25 mg tablet Take 2 tablets (50 mg total) by mouth at bedtime. 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 9 ProblemAct [facility] Acute kidney injury active 2024 9 ProblemAct [facility] Hyperlipidemia active 2017-06-29 5 ProblemAct [facility] Acute cystitis active 2024 9 ProblemAct [facility] Bipolar II disorder active 2014-11-28 5 ProblemAct [facility] Cervical radiculopathy active 8 ProblemAct [facility] Anxiety disorder active 2014-06-29 7 ProblemAct [facility] Heartburn active 6 ProblemAct [facility] Kyle hematuria active 2024 8 ProblemAct [facility] Depressive disorder active 2017-06-29 5 ProblemAct [facility] Attention deficit hyperactivity disorder, 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 5 ProblemAct [facility] JAELYN (acute kidney injury) ([facility] V24) active EncounterDiagnosisAct CT_[facility] Acute cystitis with hematuria active EncounterDiagnosisAct CT_[facility] 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 9 ProblemAct [facility] Attention deficit disorder active 2015-12-30 5 ProblemAct [facility] Bronchiolitis active 2022-05-29 2 ProblemAct [facility] Chronic idiopathic constipation active 6 ProblemAct [facility] Class 3 severe obesity due to excess calories with serious comorbidity and body mass index (BMI) of 40.0 to 44.9 in adult active 2020-01-30 9 ProblemAct [facility] Heartburn active 6 ProblemAct [facility] Depressive disorder active 2017-06-29 5 ProblemAct [facility] Anxiety disorder active 2014-06-29 7 ProblemAct [facility] Abnormal mammogram of left breast active 2017-10-29 9 ProblemAct [facility] Menopausal and female climacteric states active EncounterDiagnosisAct [facility]TH[facility] Hyperthyroidism active 1 ProblemAct [facility] Diabetes mellitus active 2017-06-29 5 ProblemAct [facility] Hyperlipidemia active 2017-06-29 5 ProblemAct [facility] Immunizations Vaccine Date Source Lot Number Status zoster vaccine subunit [facility]/08/[id number] mpleted Influenza, injectable, [place] Canine Kidney, preservative free 02/18/2024 [id number] comple oswald zoster vaccine subunit 02/18/2024 E[facility] [id number] co mpleted tetanus toxoid, reduced diph theria toxoid, and acellular pertussis vaccine, adsorbed 07/23/2021 [facility] [id number] completed SARS-COV-2 (COVID-19) vaccin e, mRNA, spike protein, LNP, preservative free, 30 mcg/0.3mL dose 12/21/2020 [facility] completed influenza, seasonal, injectable 12/09/2020 [facility] [id number] completed SARS-COV-2 (COVID-19) vaccin e, vector non-replicating, recombinant spike protein-Ad26, preservative free, 0.5 mL 05/19/2020 [facility] [id number] completed pneumococcal polysaccharide vaccine, 23 valent 02/26/2020 [facility] [id number] completed Influenza, injectable, quadr ivalent, preservative free 12/02/2019 [facility] [id number] completed tetanus toxoid, reduced diph theria toxoid, and acellular pertussis vaccine, adsorbed 02/01/2019 [facility] [id number] A completed Influenza, injectable, Madin [place] Canine Kidney, preservative free, quadrivalent 12/10/2018 [facility] [id number] completed Influenza, injectable, quadr ivalent, preservative free 12/21/2017 [facility] [id number] completed Encounters Encounter Type Encounter Reason Primary Diagnosis Location Date Ambulatory [facility] 09/29 Ambulatory [facility] 08/30 Ambulatory [facility] 08/30 Ambulatory [facility] 08/30 Emergency blood in urine lower abd pain back pain Acute cystitis with hematuria [facility] 09/24/2024 Ambulatory [facility] 08/2024 Ambulatory [facility] 08/2024 Ambulatory [facility] 08/2024 [facility] 01/04/2024 Ambulatory Menopausal and female climacteric states Menopausal and female climacteric states [facility] 11/01/2023 Ambulatory Menopausal and female climacteric states Menopausal and female climacteric states [facility] 09/22/2023 Ambulatory 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) w/o abn findings [facility] 09/22/2023 Ambulatory [facility] 06/28/2023 Ambulatory Hyperlipidemia, unspecified Hyperlipidemia, unspecified [facility] 06/03/2023 Ambulatory Encounter for general adult medical examination without abnormal findings Encounter for general adult medical examination without abnormal findings [facility] 06/03/2023 Ambulatory [facility] 09/10/2022 Ambulatory [facility] 03/31/2021 Care Team Organization Name Specialty Phone Email Start Date End Da te [facility] Primary Care 09/25/2024 [facility] Primary Care 09/25/2024 [facility] 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 07/31/2022 [facility] Primary Care 01/05/2022 10/17/2023 [facility], [facility] 04/07/2021 [facility] 03/31/2021 03/31/2021 [facility] Primary Care
--- OUTSIDE RECORDS SUMMARY | 2024-11-16 11:35 | XMS_ITS | Clinical Summary ---
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 90 tablet 0 01/23/2019 Active metFORMIN (GLUCOPHAGE-XR) ER 24 hr tablet 500 mg Take 1 tablet (500 mg total) by mouth every morning with breakfast. 0 Active cetirizine (ZyrTEC) 10 MG tablet Take 1 tablet (10 mg total) by mouth. 0 Active diclofenac (VOLTAREN) 75 MG EC tablet Take 1 tablet (75 mg total) by mouth 2 (two) times a day after meals. 0 02/18/2020 Active Nutritional Supplements (ESTROVEN PO) Estroven 0 Active CALCIUM PO Take by mouth. 0 Active famotidine (PEPCID) 20 MG tablet 0 02/29/2020 Active levothyroxine (SYNTHROID) tablet 25 mcg 0 03/16/2022 Active topiramate (TOPAMAX) 100 MG tablet Take 1 tablet (100 mg total) by mouth daily. 0 03/13/2022 Active UNABLE TO FIND Viviscal 0 Active Polyethylene Glycol 3350 (MIRALAX PO) Take by mouth. 0 Act alma TURMERIC PO Take by mouth. 0 Active Mounjaro 7.5 MG/0.5ML 0 04/18/2023 Act alma amphetamine-dextroamp hetamine (ADDERALL) 20 MG tablet 0 04/08/2023 Active montelukast (SINGULAIR) 10 MG tablet Take 1 tablet (10 mg total) by mouth every night at bedtime. 90 tablet 3 06/28/2023 Active Active Problems Problem Noted Date Diagnosed Date Allergies 07/07/2022 Bronchiolitis 06/09/2022 Class 3 severe obesity due t o excess calories with serious comorbidity and body mass index (BMI) of 40.0 to 44.9 in adult 02/26/2020 Chronic idiopathic constipation 01/04/2020 Overview: Last Assessment & Plan: Lifelong. Not well managed despite fiber supplementation daily. Add Miralax 17 g daily. Colonoscopy to exclude underlying pathology. Heartburn 01/04/2020 Overview: Last Assessment & Plan: Well managed with famotidine 20 mg QHS Discussed EGD for further evaluation, currently no alarm symptoms Patient declines at this time GERD diet discussed Consider EGD if symptoms worsen or fail to improve Abnormal mammogram of left breast 11/16/2017 Pseudoangiomatous stromal hyperplasia of breast 11/16/2017 Depressive disorder 07/22/2017 Diabetes mellitus 07/22/2017 Overview: Type 2 Hyperlipidemia 07/22/2017 Attention deficit disorder 01/13/2016 Bipolar 2 disorder 12/12/2014 Anxiety disorder 07/24/2014 Resolved Problems Problem Noted Date Diagnosed Date Resolved Date Rectal bleeding 01/04/2020 02/26/2020 Overview: Last Assessment & Plan: Blood mixed with mucus x 24 hours [...] bleeding, infection, and perforation were also explained. Left breast mass 11/16/2017 02/26/2020 Immunizations Name Administration Dates Next Due Adacel (Tdap) 07/23/2021,02/01/2019 Covid-19 (Pfizer) Dilution Required 12/21/2020 Influenza Quad (Fluarix/Fluz one/FluLaval) 0.5mL (SD-IIV4) 12/02/2019,12/21/2017 Influenza Quad (Flucelvax) 0.5mL >6mon (ccIIV4) 12/10/2018 Influenza Trivalent (Fluzone /Afluria) 5.0mL Multi-dose Vial 12/09/2020 Pneumococcal Polysaccharide PPSV23 02/26/2020 Tdap 07/23/2021,02/01/2019 Family History Medical History Relation Name Comments Diabetes type II Father Breast cancer Maternal Aunt Diabetes Maternal Grandfather Heart disease Maternal Grandfather Prostate cancer Maternal Grandfather Brain cancer Maternal Grandmother at end of life Bipolar disorder Mother Rheum arthritis Mother No Sig Med Hx Paternal Grandfather No Sig Med Hx Paternal Grandmother Bipolar disorder Sister ADD / ADHD Son 1 ADD / ADHD Son 2 Colon cancer Neg Hx Endometrial cancer Neg Hx Ovarian cancer Neg Hx Relation Name Status Comments Father Alive Maternal Aunt Maternal Grandfather Maternal Grandmother Mother Alive Paternal Grandfather Paternal Grandmother Sister Alive Son 1 Alive Son 2 Alive Social History Tobacco Use Types Packs/Day Years Used Date Smoking Tobacco: Never Smokeless Tobacco: Never Alcohol Use Standard Drinks/Week Comments No 0 (1 standard drink = 0.6 oz pur e alcohol) Social Connection and Isolat ion Panel [NHANES] Answer Date Recorded In a typical week, how many times do you talk on the phone with family, friends, or neighbors? More than three times a week 04/26/2023 How often do you get togethe r with friends or relatives? More than three times a week 04/26/2023 How often do you attend chur ch or mandaeism services? More than 4 times per year 04/26/2023 Do you belong to any clubs o r organizations such as samaritan groups, unions, fraternal or athletic groups, or school groups? Yes 04/26/2023 How often do you attend meet ings of the clubs or organizations you belong to? More than 4 times per year 04/26/2023 Are you , , di vorced, , never , or living with a partner? 04/26/2023 Overall Financial Resource Strain (CARDIA) Answe r Date Recorded How hard is it for you to pa y for the very basics like food, housing, medical care, and heating? Not hard at all 04/26/2023 Hunger Vital Sign Answer Date Recorded Within the past 12 months, y ou worried that your food would run out before you got the money to buy more. Never true 04/26/19 24 Within the past 12 months, t he food you bought just didn't last and you didn't have money to get more. Never true 04/26/2023 PRAPARE - Transportation Answer Date Re corded In the past 12 months, has l ack of transportation kept you from medical appointments or from getting medications? No 04/01 In the past 12 months, has l ack of transportation kept you from meetings, work, or from getting things needed for daily living? No 04/26/2023 Housing Stability Vital Sign Answer Perico e Recorded In the last 12 months, was t here a time when you were not able to pay the mortgage or rent on time? No 04/26/2023 In the last 12 months, how many places have you lived? 1 04/26/2023 In the last 12 months, was t here a time when you did not have a steady place to sleep or slept in a fpc (including now)? No 04/26/2023 Sex and Gender Information Value Date Recorded Sex Assigned at Female 04/28/2018 3:34 PM EST Gender Identity Not on file Sexual Orientation Not on file Job Start Date Occupation Industry Not on file Not on file Not on file Last Filed Vital Signs Vital Sign Reading Time Taken Comments Blood Pressure 120/80 04/26/2023 1:37 PM EST Pulse 75 04/26/2023 1:37 PM EST Temperature 36.6 C (97.9 F) 04/26/2023 1:37 PM EST Respiratory Rate 18 04/26/2023 1:37 PM EST Oxygen Saturation 97% 04/26/2023 1:37 PM EST Inhaled Oxygen Concentration - - Weight 83.9 kg (185 lb) 04/26/2023 1:37 PM EST Height 160 cm (5' 3 ) 04/26/2023 1:37 PM EST Body Mass Index 32.77 04/26/2023 1:37 PM EST Plan of Treatment Health Maintenance Due Date Last Done Comments Pneumococcal Vaccine (2 of 2 - PCV) 02/25/2021 02/26/2020 Shingrix-Zoster Vaccine (1 of 2) 08/28/2021 Diabetes: Eye Exam (No Retinopathy) 02/25/2022 02/26/2020 (Pt Reported - Need documentation) Hemoglobin A1C Due 12/03/2023 06/03/2023, 0 10/28/2022, 12/17/2021, Additional history exists Cervical Cancer Screening (Pap Smear) 04/16/2024 04/16/2021 (Not eligible (specify reason in comment)) BMI Counseling 04/26/2024 04/26/2023, 04/01, 04/20/2022, Additional history exists Depression Screening 04/26/2024 04/26/2023, 04/26/2023, 04/20/2022, Additional history exists Diabetes: Foot Exam 04/26/2024 04/26/2023, 04/26/2023, 04/26/2023, Additional history exists Preventative Health Evaluation 04/26/2024 04/26/2023, 04/20/2022, 04/16/2021, Additional history exists Diabetes: Microalbumin Test 06/02/2024 06/03/2023, 06/03/2023, 09/03/2020, Additional history exists COVID-19 Vaccine ( season) 2024 12/21/2020, 05/19/2020 Breast Cancer Screening (Mammogram) 09/20/2025 09/21/2023, 09/17/2022, 09/11/2021, Additional history exists Colon Cancer Screening (Colonoscopy) 02/04/2030 02/05/2020 DTap / Tdap / Td (5 - Td or Tdap) 07/24/2031 07/23/2021, 07/23/2021, 02/01/2019, Additional history exists Influenza Vaccine Discontinued 12/09/2020, (Pt Reported - Need documentation), 12/02/2019, Additional history exists Hepatitis B Vaccines Discontinued Hepatitis C Screening Discontinued RSV Ped < 20 months Aged Out No longe r eligible based on patient's age to complete this topic Advance Directives For more information, please contact: [phone] Documents on File Type Date Recorded Patient Shirt Folder Expl anation Advance Directive and Living Will 08/04/2017 5:02 PM Care 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
== END 2024-11-16 11:40 | disposition home or self-care (01) ==
LOC: HO.HSM 10:55
PROVIDERS: PCP Physician Assistant Medical; Visit Provider Registered Nurse
DX: M54.12 Radiculopathy, cervical region (principal); G56.01 Carpal tunnel syndrome, right upper limb; G44.209 Tension-type headache, unspecified, not intractable; G93.2 Benign intracranial hypertension; F90.9 Attention-deficit hyperactivity disorder, unspecified type
CPT/HCPCS: 99214